=== PATIENT | female | born 1985 | race Caucasian/White ===

== ENCOUNTER 2017-06-02 09:32 | Emergency (ER) | payer MEDICAID ==
[2017-06-02 09:53] VITALS: BMI 21.4
[2017-06-02] MEDS ORDERED: Sodium Chloride 0.9% 1,000 ML IV ONE (10:36)
[2017-06-02 10:47] LABS: HCG,QUALITATIVE URINE NEGATIVE (NEGATIVE)
[2017-06-02 11:00] LABS: BASO # 0.1 K/uL (0.0-0.2); BASO % 0.7 % (0.0-2.0); EOS # 0.1 K/uL (0.0-0.7); EOS % 0.9 % (0.0-4.0); HEMOGLOBIN 12.4 g/dL (11.0-16.0); LYMPH # 1.8 K/uL (1.0-4.3); LYMPH % 21.5 % (20.0-40.0); MEAN CELL VOLUME 80.6 fL (81.0-99.0); MEAN CORPUSCULAR HEMOGLOBIN 27.4 pg (27.0-31.0); MEAN CORPUSCULAR HGB CONC 33.9 g/dL (33.0-37.0); MEAN PLATELET VOLUME 8.2 fL (7.2-11.7); MONO # 0.9 K/uL (0.0-0.8); MONO % 10.3 % (0.0-10.0); NEUT # 5.7 K/uL (1.8-7.0); NEUT % 66.6 % (50.0-75.0); RBC 4.54 Mil/uL (3.80-5.20); RED CELL DISTRIBUTION WIDTH 13.2 % (11.5-14.5); WHITE BLOOD COUNT 8.6 K/uL (4.8-10.8)
[2017-06-02 11:01] LABS: SQUAMOUS EPITHIAL 11 /hpf (0-5); URINE BACTERIA RARE (<OCC); URINE BILIRUBIN NEGATIVE (NEGATIVE); URINE BLOOD NEGATIVE (NEGATIVE); URINE CLARITY Hazy (Clear); URINE COLOR Yellow (YELLOW); URINE GLUCOSE (UA) NORMAL (Normal); URINE LEUKOCYTE ESTERASE TRACE Leu/uL (Negative); URINE PROTEIN NEGATIVE (NEGATIVE); URINE UROBILINOGEN NORMAL mg/dL (0.2-1.0)
--- NOTE | 2017-06-02 11:02 | C.PDOC ---
History Of Present Illness 31 y/o female presents to ED with complaints of intermittent sharp right lower abdominal pain since yesterday with associated nausea and vomiting. Patient states she saw OB-SHEEP SHE[facility]ER yesterday had pap smear and was given medication Flagyl for vaginitis, but pain persisted which prompted visit to ED. Patient denies dysuria, hematuria, back pain or any other complaints at this time. She has Rx for pelvic US. Time Seen by Provider: 06/02/17 09:57 Chief Complaint (Nursing): Female Genitourinary History Per: Patient History/Exam Limitations: no limitations Onset/Duration Of Symptoms: Days Current Symptoms Are (Timing): Still Present Location Of Pain/Discomfort: RLQ Past Medical History Reviewed: Historical Data, Nursing Documentation, Vital Signs Vital Signs: Last Vital Signs Temp 98.3 F 06/02/17 13:49 Pulse 78 06/02/17 13:49 Resp 17 06/02/17 13:49 BP 102/67 06/02/17 13:49 Pulse Ox 98 06/02/17 17:11 - Medical History PMH: No Chronic Diseases Surgical History: No Surg Hx Family History: States: No Known Family Hx - Social History Hx Alcohol Use: No Hx Substance Use: No - Immunization History Hx Tetanus Toxoid Vaccination: No Hx Influenza Vaccination: No Hx Pneumococcal Vaccination: No Review Of Systems Constitutional: Negative for: Fever, Chills Gastrointestinal: Positive for: Nausea, Vomiting, Abdominal Pain. Negative for : Diarrhea, Constipation Genitourinary: Negative for: Vaginal Bleeding Skin: Negative for: Rash Physical Exam - Physical Exam Appears: Well, Non-toxic, No Acute Distress Skin: Warm, Dry, No Rash Head: Atraumatic, Normacephalic Eye(s): bilateral: Normal Inspection, EOMI Oral Mucosa: Moist Neck: Normal ROM, Supple Chest: Symmetrical Cardiovascular: Rhythm Regular, No Murmur Respiratory: Normal Breath Sounds, No Rales, No Rhonchi, No Wheezing Gastrointestinal/Abdominal: Bowel Sounds (active), Soft, Tenderness (RLQ), No Mass, No Distention, No Guarding, No Rebound Back: No CVA Tenderness Extremity: Bilateral: Atraumatic, Normal ROM Neurological/Psych: Oriented x3, Normal Speech Gait: Steady ED Course And Treatment - Laboratory Results Result Diagrams: 06/02/17 10:55 06/02/17 10:55 Lab Interpretation: Abnormal O2 Sat by Pulse Oximetry: 98 (RA) Pulse Ox Interpretation: Normal - CT Scan/US CT abd/pelvis Other Rad Studies (CT/US): Read By Radiologist, Radiology Report Reviewed CT/US Interpretation: PROCEDURE: CT Abdomen and Pelvis with contrast. HISTORY : RLQ abd pain. COMPARISON: Pelvic ultrasound performed 06/02/17. TECHNIQUE: Contrast dose: 100 cc Visipaque 320. Radiation dose: Total exam DLP = 234.72 mGy-cm. This CT exam was performed using one or more of the following dose reduction techniques: Automated exposure control, adjustment of the mA and/ or kV according to patient size, and/or use of iterative reconstruction technique. FINDINGS: LOWER THORAX: No visible consolidation, pleural effusion , or pneumothorax. LIVER: Unremarkable. GALLBLADDER AND BILE DUCTS: Unremarkable. PANCREAS: Unremarkable. SPLEEN: Unremarkable. ADRENALS: Unremarkable. KIDNEYS AND URETERS: The kidneys enhance symmetrically. No hydronephrosis or obstructing calculus identified. VASCULATURE: No aortic aneurysm. BOWEL: Stomach is nondistended. Lack of oral contrast limits evaluation for bowel pathology. Bowel loops appear within normal limits of caliber without evidence of obstruction. APPENDIX: The appendix measures approximately 8 mm in diameter, demonstrates fluid within its lumen, and demonstrates mild adjacent inflammatory changes. Correlate clinically for acute appendicitis. PERITONEUM: Small pelvic free fluid. No definite free air. LYMPH NODES: No bulky adenopathy identified. BLADDER: Mild urinary bladder wall thickening. REPRODUCTIVE: Uterus is present. Suspect bilateral ovarian cysts. BONES: Left L5 spondylolysis. OTHER FINDINGS: Partially imaged bilateral breast prostheses. IMPRESSION: The appendix measures approximately 8 mm in diameter, demonstrates fluid within its lumen, and demonstrates mild adjacent inflammatory changes. Correlate clinically including white blood cell count physical exam in order to assess for acute appendicitis. Probable bilateral ovarian cysts. Suggest pelvic ultrasound for further evaluation. Mild urinary bladder wall thickening. Recommend correlation with urinalysis. Additional findings as above. Transvaginal US Other Rad Studies (CT/US): Read By Radiologist, Radiology Report Reviewed CT/US Interpretation: HISTORY: RLQ abd pain. COMPARISON: None available. TECHNIQUE: Real-time transabdominal pelvic ultrasound was performed. In addition a transvaginal pelvic ultrasound was necessary to better depict pelvic anatomy. FINDINGS: UTERUS: Measures 8.3 x 2.7 x 4.4 cm. Anteverted. ENDOMETRIUM: Measures 2 mm in diameter. CERVIX: No cervical abnormality identified. RIGHT OVARY: Measures 3.0 x 1.3 x 2.5 cm. Blood flow is demonstrated. Follicles. LEFT OVARY: Measures 2.3 x 2.0 x 3.0 cm. Blood flow is demonstrated. 1.4 cm dominant follicle. FREE FLUID: Small pelvic free fluid , cul-de-sac. OTHER FINDINGS: None. IMPRESSION: Bilateral follicles. Small pelvic free fluid, cul-de-sac. Medical Decision Making Medical Decision Making: Impression: RLQ abdominal pain Plan: Labs, Pelvic US, CT abd/pelvis, IV fluids administered Progress: Labs reviewed no leukocytosis, bandemia or shift. Hypokalemia, and oral KCL was given. UA normal. Imaging reports reviewed, see full reports. US shows Bilateral follicles. Small pelvic free fluid, cul-de-sac. CT shows the appendix measures approximately 8 mm in diameter, demonstrates fluid within its lumen, and demonstrates mild adjacent inflammatory changes. Correlate clinically including white blood cell count physical exam in order to assess for acute appendicitis. Probable bilateral ovarian cysts. Suggest pelvic ultrasound for further evaluation. Mild urinary bladder wall thickening. Recommend correlation with urinalysis. Labs reflect no leukocytosis and UA does not show UTI. Will consult surgery for evaluation. [id number] Contact certified surgical technologist Dr Del Cid who comes to evaluate patient, not acute appendicitis. Recommend IV antibiotics and obs. The patient does not wish to stay in hospital for observation or IV antibiotics and prefers to go home. He discussed case with surgery service station manager. Then recommends oral Augmentin and can follow up outpatient. Patient remained afebrile and in no acute distress. Discussed results with patient and provide copy of lab and imaging reports. Patient expresses understanding that this can develop to acute appendicitis which requires surgical intervention. Counseling was provided regarding the diagnosis and prognosis. All questions answered and there is agreement with the plan to discharge home. She was given clear instructions on symptoms to watch for and return to ER. Patient is stable for discharge. Disposition Counseled Patient/Family Regarding: Studies Performed, Diagnosis, Need For Followup, Rx Given - Disposition Referrals: Ricky Myers MD [Staff Provider] - Disposition: HOME/ ROUTINE Disposition Time: 13:46 Condition: STABLE Additional Instructions: Take antibiotics twice daily for 10 days Follow up with your doctor in few days for further evaluation Return to the emergency department at any time if symptoms persist or worsen, including fever vomiting or severe pain Prescriptions: Amoxicillin/Clavulanate [Augmentin 875 MG-125 MG] 1 tab PO BID #20 tab Instructions: Acute Abdomen (Belly Pain), Adult (DC) Forms: Work/School/Gym Excuse, [facility] ([place]) - POA Present On Arrival: None - Clinical Impression Clinical Impression: RLQ abdominal pain, Bilateral ovarian cysts - PA / INFORMATION TECHNOLOGY INTERN / Resident Statement MD/DO has reviewed & agrees with the documentation as recorded. - Scribe Statement The provider has reviewed the documentation as recorded by the Lylaibjose Hawkins All medical record entries made by the Db were at my direction and personally dictated by me. I have reviewed the chart and agree that the record accurately reflects my personal performance of the history, physical exam, medical decision making, and the department course for this patient. I have also personally directed, reviewed, and agree with the discharge instructions and disposition.
[2017-06-02 11:23] LABS: ALB/GLOB RATIO 1.2 (1.0-2.1); ALBUMIN 3.9 g/dL (3.5-5.0); ALT/SGPT 23 U/L (9-52); AST/SGOT 22 U/L (14-36); BLOOD UREA NITROGEN 12 mg/dL (7-17); CALCIUM 8.5 mg/dl (8.6-10.4); GFR AFRICAN-AMERICAN > 60; GFR NON-AFRICAN AMERICAN > 60; LIPASE 74 U/L (23-300)
[2017-06-02] MEDS ORDERED: Iodixanol 320 MG/ML 100 ML BOTTLE IV ONE (12:02)
--- NOTE | 2017-06-02 12:43 | US ---
HISTORY: RLQ abd pain COMPARISON: None available. TECHNIQUE: Real-time transabdominal pelvic ultrasound was performed. In addition a transvaginal pelvic ultrasound was necessary to better depict pelvic anatomy. FINDINGS: UTERUS: Measures 8.3 x 2.7 x 4.4 cm. Anteverted. ENDOMETRIUM: Measures 2 mm in diameter. CERVIX: No cervical abnormality identified. RIGHT OVARY: Measures 3.0 x 1.3 x 2.5 cm. Blood flow is demonstrated. Follicles. LEFT OVARY: Measures 2.3 x 2.0 x 3.0 cm. Blood flow is demonstrated. 1.4 cm dominant follicle. FREE FLUID: Small pelvic free fluid, cul-de-sac. OTHER FINDINGS: None. IMPRESSION: Bilateral follicles. Small pelvic free fluid, cul-de-sac.
--- NOTE | 2017-06-02 13:10 | CT ---
PROCEDURE: CT Abdomen and Pelvis with contrast HISTORY: RLQ abd pain COMPARISON: Pelvic ultrasound performed 06/02/17 TECHNIQUE: Contrast dose: 100 cc Visipaque 320 Radiation dose: Total exam DLP = 234.72 mGy-cm. This CT exam was performed using one or more of the following dose reduction techniques: Automated exposure control, adjustment of the mA and/or kV according to patient size, and/or use of iterative reconstruction technique. FINDINGS: LOWER THORAX: No visible consolidation, pleural effusion, or pneumothorax. LIVER: Unremarkable. GALLBLADDER AND BILE DUCTS: Unremarkable. PANCREAS: Unremarkable. SPLEEN: Unremarkable. ADRENALS: Unremarkable. KIDNEYS AND URETERS: The kidneys enhance symmetrically. No hydronephrosis or obstructing calculus identified. VASCULATURE: No aortic aneurysm. BOWEL: Stomach is nondistended. Lack of oral contrast limits evaluation for bowel pathology. Bowel loops appear within normal limits of caliber without evidence of obstruction. APPENDIX: The appendix measures approximately 8 mm in diameter, demonstrates fluid within its lumen, and demonstrates mild adjacent inflammatory changes. Correlate clinically for acute appendicitis. PERITONEUM: Small pelvic free fluid. No definite free air. LYMPH NODES: No bulky adenopathy identified. BLADDER: Mild urinary bladder wall thickening. REPRODUCTIVE: Uterus is present. Suspect bilateral ovarian cysts. BONES: Left L5 spondylolysis. OTHER FINDINGS: Partially imaged bilateral breast prostheses. IMPRESSION: The appendix measures approximately 8 mm in diameter, demonstrates fluid within its lumen, and demonstrates mild adjacent inflammatory changes. Correlate clinically including white blood cell count physical exam in order to assess for acute appendicitis. Probable bilateral ovarian cysts. Suggest pelvic ultrasound for further evaluation. Mild urinary bladder wall thickening. Recommend correlation with urinalysis. Additional findings as above.
[2017-06-02] MEDS ORDERED: Potassium Chloride 20 mEq ER Tab PO STA (13:11)
[2017-06-02] MEDS ORDERED: Potassium Chloride 20 mEq ER Tab PO ONE (13:29)
[2017-06-02 13:49] VITALS: BP 102/67; PULSE 78; RESP 17; TEMP 98.3
[2017-06-02 14:21] VITALS: O2SAT 98
== END 2017-06-02 14:40 | disposition home or self-care (01) ==
LOC: C.ER 09:32
DX: N83.202 Unspecified ovarian cyst, left side (principal); N83.201 Unspecified ovarian cyst, right side; R10.31 Right lower quadrant pain
CPT/HCPCS: 74177; 76830; 76856; 80053; 81001; 83690; 84703; 85025; 94770; 96360; 99285; J7040; Q9967

== ENCOUNTER 2018-02-12 19:39 | Emergency (ER) | payer MEDICAID ==
[2018-02-12 19:39] VITALS: BMI 21.4
[2018-02-12 19:55] VITALS: BP 114/77; PULSE 79; RESP 16; TEMP 98.3; O2SAT 100
--- NOTE | 2018-02-12 20:30 | C.PDOC ---
History Of Present Illness 32 yo female w/o significant PMHx come in for evaluation of B/L earache gradually developed for past 2 days. Pt reports, " feels like under water". Pt admits, 1 week ago had cold sx, resolved by now. Otherwise, pt denies fever, chills, headache, dizziness, vertigo, ear discharge, sore throat, drooling, toothache, neck pain, CP, cough, abd. pain, N/V/D, UTI sx. Ambulate to Ed for evaluation, not in any apparent distress. Time Seen by Provider: 02/12/18 20:15 Chief Complaint (Nursing): ENT Problem History Per: Patient Past Medical History Reviewed: Historical Data, Nursing Documentation, Vital Signs Vital Signs: Last Vital Signs Temp 98.3 F 02/12/18 19:51 Pulse 79 02/12/18 19:51 Resp 16 02/12/18 19:51 BP 114/77 02/12/18 19:51 Pulse Ox 100 02/12/18 19:51 - Medical History PMH: No Chronic Diseases Surgical History: Appendectomy Family History: States: Unknown Family Hx - Social History Hx Tobacco Use: No Hx Alcohol Use: No Hx Substance Use: No - Immunization History Hx Tetanus Toxoid Vaccination: No Hx Influenza Vaccination: No Hx Pneumococcal Vaccination: No Review Of Systems Except As Marked, All Systems Reviewed And Found Negative. Constitutional: Negative for: Fever, Chills ENT: Positive for: Ear Pain. Negative for: Ear Discharge, Nose Discharge, Nose Congestion, Mouth Swelling, Throat Pain, Throat Swelling Cardiovascular: Negative for: Chest Pain, Palpitations Respiratory: Negative for: Cough, Shortness of Breath, Wheezing Gastrointestinal: Negative for: Nausea, Vomiting, Abdominal Pain, Diarrhea Genitourinary: Negative for: Dysuria Musculoskeletal: Negative for: Neck Pain Skin: Negative for: Rash Neurological: Negative for: Weakness, Numbness, Altered Mental Status, Headache, Dizziness Physical Exam - Physical Exam Appears: Well, Non-toxic, No Acute Distress Skin: Normal Color, Warm, Dry, No Rash Eye(s): bilateral: PERRL Ear(s): Bilateral: Other (air-fluid level noted B/L, no ear canal edema or erythema or discahrge. NO mastoid tenderness B/L) Nose: No Flaring, No Discharge Oral Mucosa: Moist, No Drooling Tongue: Normal Appearing Lips: Normal Appearing Gingiva: Normal Appearing Throat: No Erythema, No Drooling Neck: Trachea Midline, Supple Lymphatic: No Adenopathy (cervical B/L) Cardiovascular: Rhythm Regular Respiratory: No Decreased Breath Sounds, No Accessory Muscle Use, No Stridor, No Wheezing Gastrointestinal/Abdominal: Soft, No Tenderness, No Distention, No Guarding Extremity: Normal ROM, No Deformity, No Swelling Neurological/Psych: Oriented x3, Normal Speech ED Course And Treatment - Laboratory Results Urine POC: Negative O2 Sat by Pulse Oximetry: 100 Pulse Ox Interpretation: Normal Progress Note: On re-eval, pt is afebrile, hemodynamicaly stable. NOn-toxic. PulseOx 100% RA. ENT: exam c/w otitis media w/effusion B/L, No evidence of kimberly tis externa. No mastoid tenderness B/L. neck: SUpple, (-) meningeal sign Lungs: CTA B/L, BS equal B/L. Abd: benign.neuorlogicaly intact. POC (-) Pt advised and ref. to f/u with PMD, ENT in 2-3 days for re-eval. return if any new changes. Disposition Counseled Patient/Family Regarding: Studies Performed, Diagnosis, Need For Followup, Rx Given - Disposition Referrals: Perri Sellers MD [Staff Provider] - Vincent Kohli MD [Staff Provider] - Disposition: HOME/ ROUTINE Disposition Time: 20:38 Condition: STABLE Additional Instructions: Keep ears dry, avoid water exposure Take medication as prescribed Follow up with PMD in 2-3 days for re-evaluation. return to ED if any worsening or new changes. Prescriptions: Amoxicillin/Clavulanate [Augmentin 875 MG-125 MG] 1 tab PO BID #14 tab Prednisone [Deltasone] 20 mg PO DAILY #3 tablet Instructions: Serous Otitis Media Forms: [employer] (Mauritanian) - Clinical Impression Clinical Impression: Serous otitis media
[2018-02-12] MEDS ORDERED: Amoxicillin-Clav 875-125 mg Tab PO STA (20:49)
[2018-02-12] MEDS ORDERED: Amoxicillin-Clav 875-125 mg Tab PO ONE (20:54)
== END 2018-02-12 20:53 | disposition home or self-care (01) ==
LOC: C.ER 19:39
DX: H65.90 Unspecified nonsuppurative otitis media, unspecified ear (principal)